=== PATIENT | male | born 1960 | race Caucasian/White ===

== ENCOUNTER 2023-01-13 10:46 | Inpatient (IN) | payer OTHER ==
[~2023-01-13] VITALS: Ht 180.3 cm; Wt 71.2 kg
[2023-01-13 10:46] VITALS: BP_SYST 141
--- NOTE | 2023-01-13 10:52 | NUR ---
PT BIB BLS WITH C/O SOB FROM [facility]. PT WAS AT THE URGENT CARE STATING 92% O2. ON ARRIVAL, BLS STATES THE PT WAS SOB AND HAD A HARD TIME TALKING WITHOUT GASPING FOR AIR. PT ON ARRIVAL TO THE HOSPITAL COMPLAINS OF SOB. HX - RBB 2019, PRE-DIABETIC. PT IS AAXO4, NAD, VSS, PT HAS LABORED BREATHING: PT PLACED ON 4L NC, PT ON FINISHING RANGE FEEDER SHOWING NSR. SAFETY PRECAUTIONS AND COMFORT MEASURES IN PLACE. PENDING MD JONES AND ORDERS.
--- NOTE | 2023-01-13 11:27 | NUR ---
PT ADMITS TO SMOKING HALF A PACK A DAY.
[2023-01-13 11:30] LABS: BASOPHILS # (AUTO) 0.2 K/uL (0.0-0.2); BASOPHILS % (AUTO) 0.9 % (0.0-2.0); EOSINOPHILS # (AUTO) 0.2 K/uL (0.0-0.4); HEMATOCRIT 46.4 % (36-54); HEMOGLOBIN 13.5 g/dL (14.0-18.0); LYMPHOCYTES # (AUTO) 0.8 K/uL (1.0-5.5); LYMPHOCYTES % (AUTO) 3.6 % (20.5-51.5); MEAN CORPUSCULAR HEMOGLOBIN 19 pg (27-31); MEAN CORPUSCULAR HGB CONC 29 % (32-36); MEAN CORPUSCULAR VOLUME 66 fL (79.0-98.0); MONOCYTES # (AUTO) 1.1 K/uL (0.0-1.0); MONOCYTES % (AUTO) 4.9 % (1.7-9.3); NEUTROPHILS # (AUTO) 20.7 K/uL (1.8-7.7); NEUTROPHILS % (AUTO) 89.6 % (40.0-70.0); PLATELET COUNT (AUTO) 179 K/uL (130-430); RED BLOOD CELL COUNT(AUTO) 6.99 MIL/uL (4.2-6.2); RED CELL DISTRIBUTION WIDTH 23.3 % (9.0-15.0)
[2023-01-13 11:47] LABS: ANION GAP 8 (5-15); CALCIUM 8.6 mg/dL (8.4-11.0); CHLORIDE 104 mmol/L (98-107); CREATININE 1.33 mg/dL (0.55-1.30); GFR AFRICAN AMERICAN 70 mL/min (>90); GLUCOSE 95 mg/dL (70-99); UREA NITROGEN, BLOOD 17 mg/dL (8-21)
--- NOTE | 2023-01-13 11:59 | NUR ---
PT UP TO BATHROOM, STEADY GAIT
[2023-01-13] MEDS ORDERED: CEFEPIME 2 GM in D5W 100 ML IV ONE (12:00)
[2023-01-13 12:06] LABS: ALANINE AMINOTRANSFERASE 22 U/L (12-78); ALBUMIN 2.7 g/dL (3.4-4.8); ASPARTATE AMINOTRANSFERASE 20 U/L (10-37); TOTAL BILIRUBIN 1.4 mg/dL (0.0-1.0)
--- NOTE | 2023-01-13 12:17 | NUR ---
PT STATES HE TAKES TWO DAILY MEDS AT HOME, UNABLE TO RRECALL NAMES OR DOSAGES. PT INFORMED TO CALL FAMILY FOR NAMES OF MEDS.
--- NOTE | 2023-01-13 12:22 | NUR ---
ULTRASOUND BEING DONE AT BEDSIDE
--- NOTE | 2023-01-13 12:24 | NUR ---
EVELYN SWABBED AND SENT TO LAB
[2023-01-13] MEDS ORDERED: FUROSEMIDE 100 MG/10 ML VIAL IVP ONE (12:30)
--- NOTE | 2023-01-13 12:50 | NUR ---
PT O2 SAT AT 88% AT 4L, INCREASED O2 TO 6L AND NOTIFIED DR CASTILLO. DR CASTILLO ORDERED ABG BLOOD DRAW
--- NOTE | 2023-01-13 12:52 | NUR ---
DR. VERONICA, [facility] DOC, CALLED BACK TO SPEAK TO DR. CASTILLO REGARDING PT STATUS.
--- NOTE | 2023-01-13 13:06 | NUR ---
FLU SWABBED AND SENT TO LAB
--- NOTE | 2023-01-13 13:15 | NUR ---
LAB IN ROOM TO FOR ABG DRAW. CONTINUING TO MONITOR PATIENT
--- NOTE | 2023-01-13 13:30 | NUR ---
RT IN ROOM PLACING OXIMIZER AT 10 L O2
--- NOTE | 2023-01-13 13:33 | NUR ---
PLACED ON OXYMIZER 10LPM. SPO2 95%, HR 82.
[2023-01-13] MEDS ORDERED: LISI-209 PO (13:45)
[2023-01-13] MEDS ORDERED: SIMV-345 PO (13:48)
[2023-01-13 14:44] LABS: BILIRUBIN,URINE NEGATIVE (NEGATIVE); BLOOD, URINE 1+ (NEGATIVE); CLARITY/URINE CLEAR (CLEAR); COLOR,URINE YELLOW (YELLOW); GLUCOSE,URINE NEGATIVE (NEGATIVE); KETONES,URINE NEGATIVE (NEGATIVE); LEUKOCYTE ESTERASE ,URINE NEGATIVE (NEGATIVE); NITRITE, URINE NEGATIVE (NEGATIVE); PROTEIN URINE TRACE (NEGATIVE); UROBILINOGEN,URINE 0.2 (0.2-1.0)
[2023-01-13 14:50] LABS: BACTERIA,URINE FEW /HPF (None Seen); WBC,URINE 0-3 /HPF (0-3)
[2023-01-13 14:51] LABS: MUCUS,URINE 1+ /LPF (None Seen)
--- NOTE | 2023-01-13 15:12 | NUR ---
PT URINARY OUTPUT 2000ML SINCE LASIX ADMIN. PT RESTING COMFORTABLY WITH AT BEDSIDE. REPORT GIVEN TO RINA HANNAH SOLUTION [employer]IXER
--- NOTE | 2023-01-13 17:29 | NUR ---
PT MEDICIALLY CLEARED FOR D/C. D/C INSTRUCTIONS GIVEN TO PT. PT TO FOLLOW-UP WITH PCP WITHIN 1-3 DAYS AND TO RETURN TO ED FOR WROSEINING S/S. PT VERBALIZED UNDERSTANDING. PT IS AAX04, NAD, VSS, WRIST BAND REMOVED, PT AMBULATES WITH STEADY GAIT. PT LEFT ED WITH ALL BELONGINGS.
[2023-01-13] MEDS ORDERED: MAGNESIUM SULFATE 50 ML IV PRN (19:45)
[2023-01-13] MEDS ORDERED: ACETAMINOPHEN 325 MG TABLET PO PRN ×2 (19:45→20:15)
[2023-01-13] MEDS ORDERED: ONDANSETRON HCL 4 MG/2 ML VIAL IVP PRN (19:45)
[2023-01-13] MEDS ORDERED: DOCUSATE SODIUM 100 MG CAPSULE PO PRN (19:45)
[2023-01-13] MEDS ORDERED: MUPIROCIN 2% TOPICAL OINTMENT 22 GM NS PRN (19:45)
[2023-01-13] MEDS ORDERED: MORPHINE 2 MG/ML INJ. SYRINGE IVP PRN ×2 (19:45)
[2023-01-13] MEDS ORDERED: POTASSIUM CHLORIDE 20 MEQ TAB.PRT.SR PO PRN (19:45)
[2023-01-13] MEDS ORDERED: ALBUTEROL SULFATE 0.083% 2.5 MG/3 ML VIAL.NEB INH PRN (19:45)
--- NOTE | 2023-01-13 20:26 | NUR ---
Admit bed requested Patient will be admitted to care of Dr casillas Admitted to icu unit. Diagnosis acute respiratory failure Inpatient (Yes or No) yes Observation (Yes or No) no Orientation concerns or request close to nursing station (Yes or No) no Covid Status negative On vent or bipap no Isolation requirements no Needs a sitter no From Home (Yes or if No enter name of facility) yes Requires Dialysis (Yes or No) no Med Rec Completed (Yes of No) no
--- NOTE | 2023-01-13 20:28 | NUR ---
MRSA/DLU SWAB GIVEN TO LAB Addendum: 01/13/23 at 2027 by [email or web address] FLU
[2023-01-13 20:41] VITALS: BP_SYST 118
[2023-01-13] MEDS: HEPARIN SODIUM,PORCINE 5,000 UNITS/ML VIAL SUBCUT SCH (22:05)
--- NOTE | 2023-01-13 22:10 | NUR ---
report given to dana ritter
--- NOTE | 2023-01-13 22:30 | NUR ---
Report received from Celia HANNAH for continuity of care. Reason why no [facility] transfer because no beds available according to ER. Patient arrived to room 127 as ICU 9 by ruben. Patient is alert and oriented x4. Respiration even and labored. On Oxymizer 10L nc connected to oxygen tank. No active distress noted. No c/o pain. Patient able to turn appropriately. Cardiac leads placed on patient and vital signs checked. Will continue to monitor. Call light within reach.
[2023-01-13 22:39] VITALS: BP_SYST 160
[2023-01-13 22:47] VITALS: BP_SYST 130
[2023-01-13] MEDS ORDERED: PIPERACILLIN/TAZOBACTAM 3.375 GM/VIAL (ZOSYN) IV ONE (22:59)
[2023-01-13] MEDS: PIPERACILLIN/TAZO 3.375/DEX-IS 50 ML IV SCH (23:00)
[2023-01-13 23:38] VITALS: BP_SYST 124
[2023-01-14] VITALS (25 sets, daily range): BP systolic 113–150
[2023-01-14 05:50] LABS: HEMATOCRIT 45.4 % (36-54); HEMOGLOBIN 13.2 g/dL (14.0-18.0); MEAN CORPUSCULAR HEMOGLOBIN 19 pg (27-31); MEAN CORPUSCULAR HGB CONC 29 % (32-36); MEAN CORPUSCULAR VOLUME 67 fL (79.0-98.0); PLATELET COUNT (AUTO) 180 K/uL (130-430); RED BLOOD CELL COUNT(AUTO) 6.81 MIL/uL (4.2-6.2); RED CELL DISTRIBUTION WIDTH 23.1 % (9.0-15.0); WHITE BLOOD COUNT (AUTO) 22.6 K/uL (4.8-10.8)
[2023-01-14 07:03] LABS: CALCIUM 8.1 mg/dL (8.4-11.0); CREATININE 1.59 mg/dL (0.55-1.30)
[2023-01-14] MEDS: PIPERACILLIN/TAZO 3.375/DEX-IS 50 ML IV SCH ×4 (07:17→23:51)
--- NOTE | 2023-01-14 07:18 | NUR ---
Report given to day shift RN for continuity of care. Patient in stable condition.
--- NOTE | 2023-01-14 08:00 | NUR ---
AM ASSESSMENT PT BEING EXAMINED BY DR PICHARDO, ABLE TO ANSWER QUESTIONS APPROPRIATELY, DR CAMPBELL CAME IN TO SEE THE PATIENT. VITAL SIGNS STABLE, AFEBRILE, CONTINUE TO MONITOR THE PATIENT.
[2023-01-14 09:15] LABS: BAND % (MANUAL) 4 % (0-6); BASOPHILS % (MANUAL) 0 % (0-2); EOSINOPHILS % (MANUAL) 1 % (0-7); LYMPHOCYTES % (MANUAL) 3 % (20-46); MONOCYTES % (MANUAL) 5 % (0-11)
--- NOTE | 2023-01-14 09:30 | NUR ---
TEST ECHOCARDIOGRAM IN PROGRESS
[2023-01-14] MEDS: HEPARIN SODIUM,PORCINE 5,000 UNITS/ML VIAL SUBCUT SCH ×2 (09:35→21:15)
[2023-01-14] MEDS ORDERED: FUROSEMIDE 40 MG/4 ML VIAL IVP ONE (10:30)
[2023-01-14] MEDS: HYDROCORTISONE 1% 28.35 GM TOPICAL OINT. TP PRN (12:30)
--- NOTE | 2023-01-14 12:51 | NUR ---
MEDS LASIX IV GIVEN, USE AND EFFECTS OF DRUG EXPLAINED TO THE PT AND HIS .
[2023-01-14] MEDS: AZITHROMYCIN 500 MG in NS 250 ML IV SCH (13:23)
--- NOTE | 2023-01-14 14:56 | NUR ---
PAGED DR CAMPBELL, SHE CALLED BACK, REPORTED THAT PATIENT COMPLAINED OF INTENSE ITCHING TO HIS ARMS, HE SUSPECTED THAT IT WAS AFTER LASIX. MD ORDERED BENADRYL PO AND DISCONTINUED LASIX.
[2023-01-14] MEDS ORDERED: DIPHENHYDRAMINE HCL 25 MG CAPSULE PO ONE (15:00)
--- NOTE | 2023-01-14 16:10 | NUR ---
REST PT DROWSY, RESPONSIVE TO VERBAL STIMULI. PT'S STATED THAT HE HAS NOT SLEPT VERY MUCH DURING THE NIGHT.
--- NOTE | 2023-01-14 17:41 | NUR ---
TO CT SCAN TRANSPORTED PT VIA WHEELCHAIR USING PORTABLE O2, FOR CT SCAN OF THE CHEST.
--- NOTE | 2023-01-14 18:02 | NUR ---
ABDOMINAL DISCOMFORT PT EXPRESSED HEART BURN, ASKING FOR TUMS. PAGED MD FOR ORDERS.
[2023-01-14] MEDS ORDERED: PANTOPRAZOLE SODIUM 40 MG/VIAL (PROTONIX) IVP ONE (18:45)
--- NOTE | 2023-01-14 20:45 | NUR ---
CPAGED DR CAMPBELL PATIENT C/O HIVES OEVR BODY ABDOMEN, LEGS AND GROINS BACK, NECK AND LOWER ARMS INFORMED HER ADVISED TO ORDER MEDS SEE CPOE
[2023-01-14] MEDS ORDERED: DIPHENHYDRAMINE INJ 50 MG/ML VIAL IVP ONE (21:00)
[2023-01-14] MEDS: methylPREDNISolone SOD SUCC/PF 62.5 MG/ML VIAL IVP SCH (21:15)
[2023-01-15] VITALS (24 sets, daily range): BP systolic 106–158
--- NOTE | 2023-01-15 02:00 | NUR ---
noted more hives on rt upper thigh abdomen and both arms and face and palms continue to monitor suspects from Iv zosyn after dose adverse reactions, no SOB noted no c/o itchines only over body lotrimin creams applied to the affected area.continue to monitor. VSS.
[2023-01-15] MEDS ORDERED: DIPHENHYDRAMINE INJ 50 MG/ML VIAL IVP ONE (05:45)
--- NOTE | 2023-01-15 05:47 | NUR ---
[id number] Balderrama ID inquire about TB test done if were trying to R/O TB and if patient neededd to be isolated advised no Isolation precaution, Informed him about hives all over body as adverse reaction after IV zosyn dose advised to hold zosyn doses, and give dose of Iv benadril 25mg see CPOE and cont to monitor, CT results aware.
[2023-01-15] MEDS: methylPREDNISolone SOD SUCC/PF 62.5 MG/ML VIAL IVP SCH ×3 (05:55→21:26)
[2023-01-15 06:25] LABS: LYMPHOCYTES # (AUTO) 0.5 K/uL (1.0-5.5); MONOCYTES # (AUTO) 0.2 K/uL (0.0-1.0); WHITE BLOOD COUNT (AUTO) 23.4 K/uL (4.8-10.8)
[2023-01-15 07:07] LABS: ALBUMIN 2.4 g/dL (3.4-4.8); CALCIUM 8.3 mg/dL (8.4-11.0); CREATININE 1.54 mg/dL (0.55-1.30); THYROID STIMULATING HORMONE 0.58 uIu/mL (0.34-4.82); TOTAL BILIRUBIN 1.4 mg/dL (0.0-1.0)
[2023-01-15 07:19] LABS: INR 1.3 (0.80-1.20); PROTHROMBIN TIME 12.9 SECS (9.5-12.5)
[2023-01-15 07:41] LABS: BASOPHILS % (AUTO) 0.1 % (0.0-2.0); HEMATOCRIT 51.1 % (36-54); HEMOGLOBIN 14.7 g/dL (14.0-18.0); LYMPHOCYTES % (AUTO) 2.1 % (20.5-51.5); MEAN CORPUSCULAR HEMOGLOBIN 19 pg (27-31); MEAN CORPUSCULAR HGB CONC 29 % (32-36); MEAN CORPUSCULAR VOLUME 67 fL (79.0-98.0); MONOCYTES % (AUTO) 0.7 % (1.7-9.3); NEUTROPHILS # (AUTO) 22.7 K/uL (1.8-7.7); PLATELET COUNT (AUTO) 173 K/uL (130-430); RED BLOOD CELL COUNT(AUTO) 7.62 MIL/uL (4.2-6.2); RED CELL DISTRIBUTION WIDTH 22.9 % (9.0-15.0)
[2023-01-15 07:45] LABS: NEUTROPHILS % (AUTO) 97.1 % (40.0-70.0)
[2023-01-15] MEDS ORDERED: FUROSEMIDE 40 MG/4 ML VIAL IVP SCH (09:00)
[2023-01-15] MEDS: FUROSEMIDE 40 MG/4 ML VIAL IVP SCH (09:38)
[2023-01-15] MEDS: PANTOPRAZOLE SODIUM 40 MG/VIAL (PROTONIX) IVP SCH (09:38)
[2023-01-15] MEDS: lisinopriL 5 MG TABLET PO SCH (09:39)
[2023-01-15] MEDS: SIMVASTATIN 40 MG TABLET PO SCH (09:39)
[2023-01-15] MEDS: HEPARIN SODIUM,PORCINE 5,000 UNITS/ML VIAL SUBCUT SCH ×2 (09:40→21:25)
[2023-01-15] MEDS: AZITHROMYCIN 500 MG in NS 250 ML IV SCH (09:46)
[2023-01-15] MEDS: HYDROCORTISONE 1% 28.35 GM TOPICAL OINT. TP PRN (09:53)
--- NOTE | 2023-01-15 11:54 | NUR ---
SPOKE WITH PRINCESS REQUESTING ORDERS FROM DR. CAMPBELL.
[2023-01-15] MEDS ORDERED: DIPHENHYDRAMINE HCL 12.5 MG/5 ML UDC PO ONE (12:15)
[2023-01-15] MEDS: CEFEPIME 2 GM in D5W 100 ML IV SCH (13:48)
[2023-01-16] VITALS (22 sets, daily range): BP systolic 119–160
[2023-01-16] MEDS: methylPREDNISolone SOD SUCC/PF 62.5 MG/ML VIAL IVP SCH ×4 (05:57→21:31)
[2023-01-16 06:13] LABS: CREATININE 1.25 mg/dL (0.55-1.30)
--- NOTE | 2023-01-16 06:20 | NUR ---
ALL CARES DONE, O2 SUPPORT WEANING SLOWLY TO 6L NOW SIMPLE MASK, HAD BMX2, STILL WITH MINIMAL HIVES AND ITCHINESS. IS INSTRUCTED AND DEMONSTRATED AND ENCOURAGE TO USED OFTEN HE COULD.CONT OT MONITOR VSS.
[2023-01-16 07:48] LABS: HEMATOCRIT 47.3 % (36-54); HEMOGLOBIN 13.8 g/dL (14.0-18.0); MEAN CORPUSCULAR HEMOGLOBIN 19 pg (27-31); MEAN CORPUSCULAR HGB CONC 29 % (32-36); MEAN CORPUSCULAR VOLUME 67 fL (79.0-98.0); PLATELET COUNT (AUTO) 182 K/uL (130-430); RED BLOOD CELL COUNT(AUTO) 7.09 MIL/uL (4.2-6.2); RED CELL DISTRIBUTION WIDTH 23.3 % (9.0-15.0)
[2023-01-16] MEDS: SIMVASTATIN 40 MG TABLET PO SCH (09:14)
[2023-01-16] MEDS: lisinopriL 5 MG TABLET PO SCH (09:15)
[2023-01-16] MEDS: FUROSEMIDE 40 MG/4 ML VIAL IVP SCH (09:16)
[2023-01-16] MEDS: PANTOPRAZOLE SODIUM 40 MG/VIAL (PROTONIX) IVP SCH (09:16)
[2023-01-16] MEDS: HEPARIN SODIUM,PORCINE 5,000 UNITS/ML VIAL SUBCUT SCH ×2 (09:18→21:30)
[2023-01-16] MEDS: AZITHROMYCIN 500 MG in NS 250 ML IV SCH (09:21)
[2023-01-16] MEDS: CEFEPIME 2 GM in D5W 100 ML IV SCH (09:21)
[2023-01-16 10:01] LABS: WHITE BLOOD COUNT (AUTO) 37.3 K/uL (4.8-10.8)
[2023-01-16] MEDS ORDERED: DIPHENHYDRAMINE HCL 25 MG CAPSULE PO PRN (12:00)
[2023-01-16 12:34] LABS: ATYPICAL LYMPHOCYTES % 0 % (0-0); BAND % (MANUAL) 12 % (0-6); BASOPHILS % (MANUAL) 0 % (0-2); EOSINOPHILS % (MANUAL) 0 % (0-7); LYMPHOCYTES % (MANUAL) 1 % (20-46); MONOCYTES % (MANUAL) 4 % (0-11)
[2023-01-17 01:24] VITALS: BP_SYST 132
[2023-01-17 02:12] VITALS: BP_SYST 166
[2023-01-17] MEDS: methylPREDNISolone SOD SUCC/PF 62.5 MG/ML VIAL IVP SCH ×2 (06:10→10:14)
[2023-01-17 06:14] VITALS: BP_SYST 134
[2023-01-17 06:23] LABS: BASOPHILS # (AUTO) 0.2 K/uL (0.0-0.2); BASOPHILS % (AUTO) 0.4 % (0.0-2.0); HEMATOCRIT 44.2 % (36-54); HEMOGLOBIN 12.9 g/dL (14.0-18.0); LYMPHOCYTES # (AUTO) 0.5 K/uL (1.0-5.5); LYMPHOCYTES % (AUTO) 1.3 % (20.5-51.5); MEAN CORPUSCULAR HEMOGLOBIN 19 pg (27-31); MEAN CORPUSCULAR HGB CONC 29 % (32-36); MEAN CORPUSCULAR VOLUME 66 fL (79.0-98.0); MONOCYTES # (AUTO) 0.7 K/uL (0.0-1.0); MONOCYTES % (AUTO) 1.9 % (1.7-9.3); NEUTROPHILS # (AUTO) 33.9 K/uL (1.8-7.7); NEUTROPHILS % (AUTO) 96.4 % (40.0-70.0); PLATELET COUNT (AUTO) 178 K/uL (130-430); RED CELL DISTRIBUTION WIDTH 22.6 % (9.0-15.0)
[2023-01-17 06:27] LABS: CALCIUM 7.8 mg/dL (8.4-11.0); CREATININE 1.14 mg/dL (0.55-1.30)
[2023-01-17 08:18] LABS: WHITE BLOOD COUNT (AUTO) 35.2 K/uL (4.8-10.8)
[2023-01-17] MEDS: SIMVASTATIN 40 MG TABLET PO SCH (09:10)
[2023-01-17] MEDS: lisinopriL 5 MG TABLET PO SCH (09:12)
[2023-01-17] MEDS: PANTOPRAZOLE SODIUM 40 MG/VIAL (PROTONIX) IVP SCH (09:12)
[2023-01-17] MEDS: FUROSEMIDE 40 MG/4 ML VIAL IVP SCH (09:13)
[2023-01-17] MEDS: HEPARIN SODIUM,PORCINE 5,000 UNITS/ML VIAL SUBCUT SCH (09:20)
[2023-01-17] MEDS: AZITHROMYCIN 500 MG in NS 250 ML IV SCH (09:22)
[2023-01-17] MEDS: CEFEPIME 2 GM in D5W 100 ML IV SCH (09:29)
--- NOTE | 2023-01-17 11:56 | NUR ---
Patient is stable to transfer to [place] per Dr. Maguire.
--- NOTE | 2023-01-17 15:00 | NUR ---
Patient discharged by ambulance to [facility], room 5011. Gave report to maxine wagoner and CAMDEN Bianchi at [facility] prior to patient leaving for [facility]. and daughter given instructions of where patient will be tonight. All questions answered from RN, maxine wagoner and family prior to patient leaving. Patient placed on ambulance gurney with no sign or symptoms of acute distress when leaving.
== END 2023-01-17 15:00 | disposition short-term general hospital (02) | DRG 871 ==
LOC: SED 10:46 → SIC 17:30
PROVIDERS: ADMIT Family Medicine; ATTEND Family Medicine
DX: A41.9 Sepsis, unspecified organism (principal); I50.43 Acute on chronic combined systolic (congestive) and diastolic (congestive) heart failure; J15.9 Unspecified bacterial pneumonia; J96.01 Acute respiratory failure with hypoxia; N17.0 Acute kidney failure with tubular necrosis; E44.0 Moderate protein-calorie malnutrition; J44.1 Chronic obstructive pulmonary disease with (acute) exacerbation; J44.0 Chronic obstructive pulmonary disease with (acute) lower respiratory infection; I13.0 Hypertensive heart and chronic kidney disease with heart failure and stage 1 through stage 4 chronic kidney disease, or unspecified chronic kidney disease; E78.5 Hyperlipidemia, unspecified; R65.20 Severe sepsis without septic shock; R73.03 Prediabetes; D50.9 Iron deficiency anemia, unspecified; E83.51 Hypocalcemia; R74.01 Elevation of levels of liver transaminase levels; Z20.822 Contact with and (suspected) exposure to COVID-19; N18.2 Chronic kidney disease, stage 2 (mild); Z88.8 Allergy status to other drugs, medicaments and biological substances; Z79.899 Other long term (current) drug therapy; Z86.16 Personal history of COVID-19; Z87.891 Personal history of nicotine dependence; Z68.21 Body mass index [BMI] 21.0-21.9, adult
CPT/HCPCS: 36415; 36600; 71045; 71250-TC; 76376; 80048; 80053; 80061; 81000; 82803-TC; 83605; 83735; 83880; 84443; 84484; 85007; 85025; 85027; 85379; 85610-TC; 86140; 86480; 86738; 87040; 87081; 87086; 87449; 93005; 93306; 93970; 94760; 96365; 96375; 99291; C9113; J0456; J0692; J1200; J1644; J1940; J1956; J2543; J2930; J7050; J7060; Q0163; U0003